=== PATIENT | male | born 1965 | race Caucasian/White ===

== ENCOUNTER 2018-06-20 17:19 | Inpatient (IN) | payer BC ==
[2018-06-20] MEDS ORDERED: Piperacillin/Tazobactam 4.5 GM in Sodium Chloride 0.9% 100 ML IVPB SCH (19:15)
[2018-06-20] MEDS ORDERED: Dextrose 5% in Water 1,000 ML IV PRN (19:32)
[2018-06-20] MEDS ORDERED: HumaLOG 300 UNITS/3 ML VIAL SC PRN (19:32)
[2018-06-20] MEDS ORDERED: Dextrose 50% Abboject 50 ML SYRINGE SLOW IVP PRN (19:32)
[2018-06-20] MEDS ORDERED: Adacel (T-DAP) 0.5 ML VIAL ONE (19:35)
[2018-06-20] MEDS ORDERED: Acetaminophen 325 MG TAB ONE (19:35)
--- NOTE | 2018-06-20 19:42 | PDOC.FPRHP ---
- History of Present Illness Chief Complaint: Foot pain History of Present Illness: Pt presents to the ED tonight with reports of a blister that began months ago, he was treated with one week course of keflex from an urgent care 3 weeks ago with improvement in the wound. Recently it has stopped draining, become more inflammed, and is somewhat painful to the touch. He denies fever/chills, SOB, lightheadedness, N/V/D. He is not sure how the wound initially began. ED Course: xfer [facility], has been vanc/zosyn and 1L NS. X-ray shows no abel involvement or indication of foreign body - Allergies/Adverse Reactions Allergies Allergy/AdvReac Type Severity Reaction Status Date / Time No Known Allergies Allergy Verified 06/20/18 20:59 - Home Medications Medication Instructions Recorded Confirmed Type No Known 06/20/18 06/20/18 History - History PMHx:DMII, HFrEF PSHx: none FHx:none Social: 1 can/day - Review of Systems General: denies: fever/chills, weight/appetite/sleep changes Eyes: denies: vision changes ENT: denies: nasal congestion Respiratory: denies: cough, shortness of breath Cardiovascular: denies: chest pain, edema Gastrointestinal: denies: nausea, vomiting, diarrhea Skin: reports: lesions. denies: jaundice Musculoskeletal: reports: pain, swelling Neurological: denies: numbness, weakness Psychological: denies: anxiety, depression - Vital signs BP: [148/89] HR: [108] RR: [16] Tmax: [99.8] Pox: [99]% on [RA] Wt: [86.18] - Physical Exam Constitutional: NAD, well developed HEENT: normocephalic and atraumatic, grossly normal vision, grossly normal hearing Neck: FROM, trachea midline Chest: no-tender to palpation Heart: RRR, normal S1/S2, no murmurs/rubs/gallops, pulses present Lungs: CTAB, no respiratory distress, good air movement Abdomen: soft, non-tender Musculoskeletal: normal structure, other (decrease ROM in R 5th toe 2/2 swelling ) Neurological: no focal deficit, CN II-XII intact Skin: capillary refill <2 seconds, other (black ulcer over R distal 5th metatarsal area, surrounding erythema and stranding extending up midfoot to distal tibia, no exudate or palpable abcess.) Heme/Lymphatic: no unusual bruising or bleeding, no petechia Psychiatric: normal mood and affect, good judgment and insight FMR H&P: A/P - Problem List (1) Diabetic foot ulcer Current Visit: Yes Status: Acute Code(s): E11.621 - TYPE 2 DIABETES MELLITUS WITH FOOT ULCER; L97.509 - NON-PRESSURE CHRONIC ULCER OTH PRT UNSP FOOT W UNSP SEVERITY (2) Diabetes mellitus type 2 with complications, uncontrolled Current Visit: Yes Status: Acute Code(s): E11.8 - TYPE 2 DIABETES MELLITUS WITH UNSPECIFIED COMPLICATIONS; E11.65 - TYPE 2 DIABETES MELLITUS WITH HYPERGLYCEMIA (3) HFrEF (heart failure with reduced ejection fraction) Current Visit: Yes Status: Acute Code(s): I50.20 - UNSPECIFIED SYSTOLIC ( CONGESTIVE) HEART FAILURE - Plan 1. Diabetic foot infection - continue IV vanc/zosyn, consider quick de-escalation to oral abx - MRI to further evaluate for osteomyelitis - monitor vital signs on medical floor - PO hydration - consider surgical debridement 2. Uncontrolled type 2 DM - most likely contributing to poor wound healing - mild sliding scale insulin - consistent carb diet - encourage est. with PCP 3. HFrEF - poor vasculature possibly contributing to poor wound healing - TTE to evaluate EF - encourage following up with a personnel recruiter outpatient - Lipid panel to evaluate risk vascular disease Disposition/LOS: observation to evaluate for osteomyelitis, continue IV antibiotics, possible DC in 24 hrs with PO abx FMR H&P: Upper Level - Pertinent history 52M seen for today for 3 week of right fifth toe ulcer. He received keflex as outpatient for 2 week. It appear to improve but then worsen. He associate it with serosanguinous discharge, pain, warmth and worsen with his work boots. He has previous history of diabetes but has not taken any medication or have any doctor he sees. He also state he had pacemaker/defib unit placed for ejection fraction less then 35% but was unable to say if there was a cause. He does not take medication for this and has not seen [facility] cardiology in 15 years, where he had his defib placed. Specifically denies fever, chills, SOB, chest pain, polydipsia, polyuria. - Pertinent findings Pertinent physical finding: Gen: Alert, grossly oriented CV: RRR with no apparent m/g/r Ext: Right foot, fifth digit, on planatar surface, there is approximately 1.5 cm diameter dry ulcer with eschar on surface. There is diffuse erythema spreading up to about 5 inch from site of ulcer. Mild pain on palpation. Sensation grossly intact. Strength 5/5 in LE. Xray foot: Calcification of vessels. - Plan Date/Time: 06/20/181940 I, [Shashank Tomas], have evaluated this patient and agree with findings/plan as outlined by sports intern resident. Pertinent changes/additions are listed here. 1. Diabetic foot cellulitis, rule out osteomyelitis - Moderate severity, failing outpatient treatment. - Plan, start with empiric vanc and zosyn. - Culture wound. MRI for further osteo assessment - Consider cv/gen surg consult 2. DM2 uncontrolled - Meets criteria with 200+ BG with diabetic symptom (diabetic foot) - Mild SSI - A1c as outpatient. Obtain lipid panel today for risk statification due to known cardiac disease and PAD which may need itnervention 3. PAD - As seen on xray, calcification of vessels. - May need imaging. Consult surgery 4. CHF with rEF - Per patient, he has EF of less then 35% with pacemaker/defib - Will obtain echo as patient has obvious vascular disease and for risk stratification - Start with aspirin, 81 mg. 5. Elevated bilirubin - No comparison. Patient does not appear jaundice, no abd pain, other liver enzyme normal - At this time, recommend outpatient work up. Attending Addendum - Attending Addendum Date/Time: 06/20/18 4754 I personally evaluated the patient and discussed the management with Dr. Harrington I agree with the History, Examination, Assessment and Plan documented above with any addition or exceptions noted below. 52 yo male with 1 month history of draining wound right foot treated with 2 week course of Keflex and now with return of symptoms. Patient with history of AODM, HTN, dyslipidemia and CHF s/p pacemaker defribrillator 15 years ago.Patient states he lost 65 lbs and has not had regular medical care for the last 15 years. Right foot with swelling and erythema and eschar formation under MTP area. No signs of systemic illness concern with osteomyelitis rec bone scan in leiu of pacemaker not candidate for MRI. Surgical consultation in AM.
[2018-06-20 20:32] VITALS: BMI 25.7
[2018-06-20] MEDS ORDERED: Vancomycin HCl 1.25 GM in Sodium Chloride 0.9% 250 ML 250 ML IVPB SCH (21:00)
[2018-06-20 21:17] LABS: Vancomycin, Trough 7.2 ug/mL
[2018-06-20] MEDS: HumaLOG 300 UNITS/3 ML VIAL SC PRN (21:32)
[2018-06-21 00:41] LABS: Hemoglobin A1c 13.1 % (4.0-6.0)
[2018-06-21] MEDS: Piperacillin/Tazobactam 4.5 GM in Sodium Chloride 0.9% 100 ML IVPB SCH ×3 (04:04→20:00)
[2018-06-21 04:24] LABS: #Eosinphils 0.1 thou/uL (0.0-0.7); #Lymphocytes 1.2 thou/uL (1.20-3.40); #Monocytes 0.6 thou/uL (0.11-0.59); #Neutrophils 4.9 thou/uL (1.40-6.50); %Basophils 0.4 % (0.0-1.0); %Eosinophils 0.9 % (0.0-10.0); %Monocytes 8.5 % (0.0-10.0); %Neutrophils 72.2 % (42.0-75.0); Hemoglobin 12.8 g/dL (14.0-18.0); Mean Corpuscular HGB CONC 33.4 g/dL (32.0-36.0); Mean Corpuscular Hemoglobin 28.2 pg (27.0-31.0); Mean Corpuscular Volume 84.4 fL (78.0-98.0); Platelet Count 141 thou/uL (130-400); RBC Distribution Width 11.5 % (11.5-14.5); Red Blood Cell (RBC) Count 4.54 mill/uL (4.70-6.10); White Blood Cell (WBC) Count 6.8 thou/uL (4.8-10.8)
[2018-06-21 04:45] LABS: ALT (SGPT) 11 U/L (8-55); AST (SGOT) 11 U/L (5-34); Albumin 3.4 g/dL (3.5-5.0); Alkaline Phosphatase 62 U/L (40-150); Anion Gap 13 mmol/L (10-20); BUN (Urea Nitrogen) 11 mg/dL (8.4-25.7); Bilirubin, Total 1.7 mg/dL (0.2-1.2); Calc. Creatinine Clearance 110 mL/min (70-130); Calcium 9.2 mg/dL (7.8-10.44); Carbon Dioxide 26 mmol/L (22-29); Cardiac Risk 2.8 (Less than 4.5); Chloride 101 mmol/L (98-107); Cholesterol 108 mg/dl (< 200 Desired); Estimated GFR-MDRD 80; Globulin 2.9 g/dL (2.4-3.5); Glucose 270 mg/dL (70-105); HDL Cholesterol 38 mg/dL (>60 Neg Risk); LDL Cholesterol, Calculated 57 mg/dL; Protein, Total 6.3 g/dL (6.0-8.3); Sodium 136 mmol/L (136-145); Triglycerides 66 mg/dL (Less than 150)
--- NOTE | 2018-06-21 06:39 | PDOC.FM ---
- Subjective Subjective: NAEO. Patient denies any chest pain, SOB, N/V, fever/chills or significant foot pain. States his pain is currently 2/10 in severity. - Objective MAR Reviewed: Yes Vital Signs & Weight: Vital Signs (12 hours) Temp Pulse Resp BP Pulse Ox 06/21/18 04:05 98.8 F 89 16 141/78 H 94 L 06/20/18 23:30 98.5 F 94 20 120/66 95 06/20/18 20:31 99.5 F 102 H 20 145/78 H 98 Weight Weight 88.5 kg I&O: 06/19/18 06/20/18 06/21/18 06:59 06:59 06:59 Intake Total 690 Output Total 825 Balance -135 Result Diagrams: 06/21/18 04:05 06/21/18 04:05 <Andressa Aquino - Last Filed: 06/21/18 13:15> - Objective Vital Signs & Weight: Vital Signs (12 hours) Temp Pulse Resp BP Pulse Ox 06/21/18 11:21 98.7 F 89 20 142/79 H 94 L 06/21/18 07:46 98.8 F 87 16 128/70 96 06/21/18 04:05 98.8 F 89 16 141/78 H 94 L Weight Weight 88.5 kg I&O: 06/20/18 06/21/18 06/22/18 06:59 06:59 06:59 Intake Total 690 1000 Output Total 825 500 Balance -135 500 Result Diagrams: 06/21/18 04:05 06/21/18 04:05 <Joselito Donald - Last Filed: 06/21/18 13:51> Phys Exam - Physical Examination Constitutional: NAD HEENT: sclera anicteric Neck: supple, full ROM Respiratory: no wheezing, no rales, no rhonchi, clear to auscultation bilateral Cardiovascular: RRR, no significant murmur Gastrointestinal: soft, non-tender, no distention, positive bowel sounds Musculoskeletal: pulses present, edema present edema over right 5th digit and dorsum of foot Neurological: non-focal, moves all 4 limbs decreased ROM in right 5th toe 2/2 inflammation Psychiatric: normal affect, A&O x 3 Skin: no rash, normal turgor Deviation from normal: erythema and edema in R foot in R 5th toe extending over dorsum of foot -: ~2cm area of eschar w/ purulent discharge noted at base of 5th digit <Andressa Aquino - Last Filed: 06/21/18 13:15> Dx/Plan (1) Diabetic foot ulcer Code(s): E11.621 - TYPE 2 DIABETES MELLITUS WITH FOOT ULCER; L97.509 - NON- PRESSURE CHRONIC ULCER OTH PRT UNSP FOOT W UNSP SEVERITY Status: Acute Qualifiers: Diabetic foot ulcer location: midfoot Laterality: right (2) Diabetes mellitus type 2 with complications, uncontrolled Code(s): E11.8 - TYPE 2 DIABETES MELLITUS WITH UNSPECIFIED COMPLICATIONS; E11.65 - TYPE 2 DIABETES MELLITUS WITH HYPERGLYCEMIA Status: Chronic (3) HFrEF (heart failure with reduced ejection fraction) Code(s): I50.20 - UNSPECIFIED SYSTOLIC (CONGESTIVE) HEART FAILURE Status: Chronic Qualifiers: Heart failure chronicity: chronic Qualified Code(s): I50.22 - Chronic systolic (congestive) heart failure - Plan Plan: 52YOM w/ PMH significant for poorly controlled DMII who presented to the ED w/ a CC of a nonhealing right foot ulcer that has been present for the last month. Right foot cellulitis vs.possible osteomyelitis - Will continue IV vanc/zosyn for now. Will consider quick de-escalation to oral abx if no osteo evident on NM bone scan. - NM bone scan pending to further evaluate for osteomyelitis. - Will continue to monitor vital signs on medical floor. - Will keep NPO in anticipation of possible need for surgical debridement. General surgery, Dr. Elvia Seo, consulted today. - Wound care consulted. Uncontrolled type 2 DM - A1c 13.1 on admission w/ BG levels consistently >200 even while NPO. - Will consider initiating basal insulin in conjunction w/ metformin for better BG control. Goal to keep BG <200 to promote wound healing. - Will also consider initiating statin and RESHMA-I therapy given patient's poor control. - Will continue accuchecks. HFrEF - Patient has a pacemaker in place. Possibly 2/2 CHF. Has been at least 15 years since patient was seen by cards. - Echo pending to evaluate EF. - Will encourage following up with a deli bakery clerk outpatient. - Lipid panel WNLs but will consider initiating statin therapy given patient's poorly controlled DM. <Andressa Aquino - Last Filed: 06/21/18 13:15> (1) Diabetic foot ulcer Code(s): E11.621 - TYPE 2 DIABETES MELLITUS WITH FOOT ULCER; L97.509 - NON- PRESSURE CHRONIC ULCER OTH PRT UNSP FOOT W UNSP SEVERITY Status: Acute Qualifiers: Diabetic foot ulcer location: midfoot Laterality: right (2) Diabetes mellitus type 2 with complications, uncontrolled Code(s): E11.8 - TYPE 2 DIABETES MELLITUS WITH UNSPECIFIED COMPLICATIONS; E11.65 - TYPE 2 DIABETES MELLITUS WITH HYPERGLYCEMIA Status: Chronic (3) HFrEF (heart failure with reduced ejection fraction) Code(s): I50.20 - UNSPECIFIED SYSTOLIC (CONGESTIVE) HEART FAILURE Status: Chronic Qualifiers: Heart failure chronicity: chronic Qualified Code(s): I50.22 - Chronic systolic (congestive) heart failure <Joselito Donald - Last Filed: 06/21/18 13:51> Attending Addendum - Attending Addendum Date/Time: 06/21/18 1345 I personally evaluated the patient and discussed the management with Dr. Aquino I agree with the History, Examination, Assessment and Plan documented above with any addition or exceptions noted below. Patient with neglected diabetes will benefit from aggressive management for wound healing no systemic signs bacterial infection. Continue current antibiotic coverage for soft tissue infection and opinion from General Surgery regard need for formal debridement . Patient for bone scan today r/o osteomyelitis, Echocadiogram to evaluate EF note prior placement of AICD x 15 year unknown status patient unaware of any device interrogation and cordwainer /placemt ID card unavailable rec f/u . <Joselito Donald - Last Filed: 06/21/18 13:51>
[2018-06-21] MEDS ORDERED: Dextrose 50% Abboject 50 ML SYRINGE SLOW IVP PRN (07:57)
[2018-06-21] MEDS ORDERED: Dextrose 5% in Water 1,000 ML IV PRN (07:57)
[2018-06-21] MEDS: Vancomycin HCl 1.25 GM in Sodium Chloride 0.9% 250 ML 250 ML IVPB SCH ×2 (10:03→21:46)
[2018-06-21] MEDS: Insulin Glargine 10 UNITS in Pre-Filled Syringe 1 EACH SC SCH (10:12)
[2018-06-21] MEDS: metFORMIN 500 MG TAB PO SCH ×2 (10:12→15:51)
--- NOTE | 2018-06-21 18:06 | NM ---
THREE-PHASE BONE SCAN OF BOTH FEET: HISTORY: Left foot cellulitis and possible osteomyelitis. The patient has diabetes. TECHNIQUE: A 3-phase bone scan was performed after administration of 30 mCi of Technetium 99m MDP. FINDINGS: Angiographic and blood pool phase images show increased flow to the left foot compared to the right. Delayed phase images show increased uptake of the radiopharmaceutical in the phalanges of the small toe. Subtle increased uptake of the radiopharmaceutical is also seen surrounding the metatarsal phal angeal joint of the 4th toe. Whole body bone scan images showed no other areas of increased or decreased uptake of the radiopharma ceutical. IMPRESSION: Findings are 3-phase positive of the right with increased uptake in the small toe. This is consisten t with osteomyelitis of the small toe. The uptake in the 4th toe adjacent to the metatarsal phalange al joint may or may not represent osteomyelitis. POS: MICHAEL
[2018-06-21] MEDS: Atorvastatin Calcium 40 MG TAB PO SCH (19:59)
--- NOTE | 2018-06-21 20:43 | CON ---
DATE OF CONSULTATION: 06/21/2018 REASON FOR CONSULTATION: Right foot diabetic infection. HISTORY: Mr. Fischer is a 52-year-old man who presented to the hospital with a 1 month history of inte rmittent right foot swelling and erythema. He states that he had a small blister on the side of his foot and developed redness and swelling related to this. He was treated with antibiotics and the swe lling would respond to this, but then as soon as he finish taking his antibiotics the swelling would recur. He denies any drainage from the wound recently, although there has been some in the past. No known foreign body or puncture wound. He cannot remember what caused the wound. PAST MEDICAL HISTORY: Diabetes, heart failure. PAST SURGICAL HISTORY: None. FAMILY HISTORY: Noncontributory. SOCIAL HISTORY: Occasional alcohol use, but no tobacco or drugs. HOME MEDICATIONS: Keflex for about 3 weeks recently. His diabetes has been primarily managed by t alone. INPATIENT MEDICATIONS: Include atorvastatin, sliding scale insulin, metformin, Zosyn, and vancomycin . PHYSICAL EXAMINATION: VITAL SIGNS: Patient has been afebrile since his admission. Heart rate 89, respirations 20, 94% sat urated on room air, blood pressure 142/79. GENERAL: Reveals a healthy appearing man in no acute distress. He is not flushed or toxic, jaundice d or icteric. HEENT: Unremarkable. NECK: Supple, without lymphadenopathy or thyroid nodules. HEART: Regular in its rate and rhythm without murmurs, rubs or gallops. LUNGS: Clear to auscultation bilaterally. ABDOMEN: Soft, nontender, nondistended. EXTREMITIES: Warm and well perfused with palpable pedal pulses bilaterally. He has lymphangitic str eaking on the right foot and a closed wound on the lateral leg from which there is no expressible gayle inage. He has some skin on the surface, but there is no tract which probes down to bone or deep tissue. NEUROLOGIC: No focal deficits. PSYCHIATRIC: Alert, oriented, and appropriate. LABORATORY DATA: White count is normal at 6.8, hematocrit 38.3, platelets 141. Electrolytes are unr emarkable, but glucose has been elevated at 189-272 and hemoglobin A1c is high at 13.1. His electrol ytes are unremarkable. Bilirubin is mildly elevated at 1.7, but the other LFTs are normal. IMAGING: Bone scan of the body revealed increased uptake in the right fifth digit and some mild incr ease in the right fourth metatarsal. ASSESSMENT: Osteomyelitis of the right fifth toe. PLAN: I have recommended amputation for this given the prolonged course and recurrence after complet ing antibiotics. The patient was not ready to proceed to OR and asked about nonoperative options and stated that one nonoperative treatment is chosen typically a PICC line will be placed for long-term IV antibiotics and this will be managed by the Infectious Disease doctor. There is a small chance of toe salvage, but if the infection recurs an amputation would be necessary. The patient and his fami ly would like to speak to Dr. Campos about nonoperative treatment. I do believe that the patient has good enough blood flow to heal an amputation if he decides to proceed with this. Since he will not b e undergoing amputation today, I have resumed his diet and I have consulted Dr. Campos to discuss nono perative management with the patient and his family.
[2018-06-21] MEDS: HumaLOG 300 UNITS/3 ML VIAL SC PRN (23:32)
[2018-06-21] MEDS: Acetaminophen 500 MG TAB PO PRN (23:33)
[2018-06-22] MEDS: Piperacillin/Tazobactam 4.5 GM in Sodium Chloride 0.9% 100 ML IVPB SCH ×3 (04:39→20:02)
--- NOTE | 2018-06-22 05:28 | PDOC.FM ---
- Subjective Subjective: Pt. states he slept well. He denies any cp, sob, abdominal pain, or n/v. Pt. reports his foot is feeling better. He reports the redness is improved. He does state that his hesitation to amputation is the suddenness of the suggestion of amputation. 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 - Objective MAR Reviewed: Yes Vital Signs & Weight: Vital Signs (12 hours) Temp Pulse Resp BP Pulse Ox 06/22/18 04:00 98.0 F 80 16 112/67 94 L 06/22/18 00:00 99.3 F 94 16 117/67 94 L 06/21/18 20:00 99.4 F 96 16 144/89 H 94 L Weight Weight 88.5 kg I&O: 06/20/18 06/21/18 06/22/18 06:59 06:59 06:59 Intake Total 690 1340 Output Total 825 800 Balance -135 540 Result Diagrams: 06/21/18 04:05 06/21/18 04:05 <Tigre Elena - Last Filed: 06/22/18 15:20> - Objective Vital Signs & Weight: Vital Signs (12 hours) Temp Pulse Resp BP Pulse Ox 06/22/18 09:26 97.7 F 109 H 18 126/74 97 06/22/18 08:00 97 Weight Admit Weight 88.451 kg Weight 88.5 kg I&O: 06/21/18 06/22/18 06/23/18 06:59 06:59 06:59 Intake Total 690 1340 180 Output Total 825 800 Balance -135 540 180 Result Diagrams: 06/21/18 04:05 06/21/18 04:05 <Lesly Ignacio - Last Filed: 06/22/18 17:11> Phys Exam - Physical Examination Constitutional: NAD HEENT: PERRLA, moist MMs Neck: no JVD Respiratory: no wheezing, clear to auscultation bilateral Cardiovascular: RRR, irregular (fixed s2 split, scar consistent with pacemaker placement) Gastrointestinal: soft, non-tender, no distention, positive bowel sounds Musculoskeletal: no edema, pulses present (both posterior tibial and dorsal pedalis pusles stronger in left leg.) Neurological: moves all 4 limbs Psychiatric: normal affect, A&O x 3 Skin: cap refill <2 seconds <Tigre Elena - Last Filed: 06/22/18 15:20> Dx/Plan (1) Osteomyelitis of toe of right foot Code(s): M86.9 - OSTEOMYELITIS, UNSPECIFIED Status: Acute (2) Diabetic foot ulcer Code(s): E11.621 - TYPE 2 DIABETES MELLITUS WITH FOOT ULCER; L97.509 - NON- PRESSURE CHRONIC ULCER OTH PRT UNSP FOOT W UNSP SEVERITY Status: Acute Qualifiers: Diabetic foot ulcer location: midfoot Laterality: right (3) Diabetes mellitus type 2 with complications, uncontrolled Code(s): E11.8 - TYPE 2 DIABETES MELLITUS WITH UNSPECIFIED COMPLICATIONS; E11.65 - TYPE 2 DIABETES MELLITUS WITH HYPERGLYCEMIA Status: Chronic (4) HFrEF (heart failure with reduced ejection fraction) Code(s): I50.20 - UNSPECIFIED SYSTOLIC (CONGESTIVE) HEART FAILURE Status: Chronic Qualifiers: Heart failure chronicity: chronic Qualified Code(s): I50.22 - Chronic systolic (congestive) heart failure - Plan Plan: This is a 52 yo male with a PMH of DM2 uncontrolled, and HFrEF Diabetic foot ulcer with osteomyelitis of right 5th toe -Nuclear study shows evidence of osteo of the 5th toe. Pt. is currently on IV vanc and zosyn and will likely need this regiment for 6 weeks unless pt. undergoes surgery. Dr. Seo was consulted and believes amputation is the best option given the pt's blood flow and recurrent infections. Pt. is not ready for this and wishes to discuss plan with Dr. Campos. Dr. Seo has consulted Dr. Campos and we will appreciate his rec. Wound care has been consulted. Uncontrolled type 2 DM -Evidently pt. A1C and glucose levels were elevated upon admission. Our goal is to keep BG <200 to allow for wound healing. Pt. is receiving metformin, long, and short acting insulin. We will continue accuchecks. HFrEF -Pt. has pacemaker. EF shows 25-30%. We will encourage pt. to follow up with blow torch operator outpatient Code: Full Prophylaxis: None currently Family: at bedside, plan discussed with her Disposition: DC in 3-4 days <Tigre Elena - Last Filed: 06/22/18 15:20> Attending Addendum - Attending Addendum Date/Time: 06/22/18 5671 I personally evaluated the patient and discussed the management with Dr. Elena. I agree with the History, Examination, Assessment and Plan documented above with any addition or exceptions noted below. The patient continues on IV antibiotics for osteomyelitis. Dr. Campos has been consulted and recs are pending. Erythema has improved from the margins drawn on the foot. <Lesly Ignacio - Last Filed: 06/22/18 17:11>
[2018-06-22] MEDS: Insulin Glargine 10 UNITS in Pre-Filled Syringe 1 EACH SC SCH (08:46)
[2018-06-22] MEDS: metFORMIN 500 MG TAB PO SCH ×2 (08:46→16:06)
[2018-06-22] MEDS: Vancomycin HCl 1.25 GM in Sodium Chloride 0.9% 250 ML 250 ML IVPB SCH ×2 (08:46→21:12)
[2018-06-22 10:02] LABS: Vancomycin, Trough 27.9 ug/mL
[2018-06-22] MEDS: HumaLOG 300 UNITS/3 ML VIAL SC PRN ×2 (14:17→17:55)
--- NOTE | 2018-06-22 15:43 | PDOC.GSPN ---
Surgery Progress Note: Subj - Subjective Narrative: Patient feels better today. He feels like his foot has improved in terms of the pain and swelling. On examination, he looks about the same to me. His toe is still very swollen and red and he still has lymphangitic streaking. There is no expressible drainage from the ulcer. He is afebrile and his vitals are stable. When I saw him he was still waiting to see Dr. Campos. Assessment/plan: Osteomyelitis of the right fifth toe. I have recommended amputation. He would like to investigate nonoperative options first. Since he is not ready to proceed with surgery I have ordered a diet for him. If he decides to have surgery, I have asked his nurse to contact me so that I can put him on the OR schedule and stop his diet; however, I have no plans to operate today. Surgery Progress Note: Obj - Vital signs Vital signs: Vital Signs - Most Recent Temp Pulse Resp BP Pulse Ox 97.7 F 109 H 18 126/74 97 06/22/18 09:26 06/22/18 09:26 06/22/18 09:26 06/22/18 09:26 06/22/18 09:26 Surgery Progress Note: Results - Labs Result Diagrams: 06/21/18 04:05 06/21/18 04:05 Lab results: Laboratory Results - last 24 hr 06/22/18 06/22/18 06/22/18 04:53 09:36 11:25 POC Glucose 186 H 225 H Vancomycin Trough 27.9
[2018-06-22] MEDS ORDERED: Morphine 4 MG/ML VIAL SLOW IVP SCH (16:00)
[2018-06-22] MEDS: Acetaminophen 500 MG TAB PO PRN ×2 (16:06→23:03)
[2018-06-22] MEDS: Atorvastatin Calcium 40 MG TAB PO SCH (20:02)
[2018-06-22 20:24] LABS: Vancomycin, Trough 14.5 ug/mL
--- NOTE | 2018-06-22 23:15 | CON ---
DATE OF CONSULTATION: 06/22/2018 REASON FOR CONSULTATION: Inflammatory process, right fifth toe with abnormal bone scan. HISTORY OF PRESENT ILLNESS: A 52-year-old with history of type 2 diabetes and neuropathy, who develo ped what he describes as a scab in the lateral aspect of the right fifth toe, was treated with antimi crobial therapy after he developed erythema with improvement and then overnight from Friday to ay. The day of admission, he noticed very rapid recrudescence of the erythema. He was admitted. X- ray did not show any obvious osteolysis, but bone scan was positive. REVIEW OF SYSTEMS: He denies headaches, visual symptoms, sore throat, odynophagia, dysphagia, no cou gh or sputum production, no chest pain, abdominal pain, diarrhea. No genitourinary symptoms. No bayron nt symptoms outside the area of involvement. PAST MEDICAL HISTORY: Type 2 diabetes, neuropathy. PAST SURGICAL HISTORY: Negative. FAMILY HISTORY: Noncontributory. SOCIAL HISTORY: Drinks 1 beer a day. No smoking history. Works in [employer]. Lives in [facility] with . CURRENT MEDICATIONS: Tylenol, Lipitor, dextrose, glucagon, insulin, metformin, Zosyn, and vancomycin . PHYSICAL EXAMINATION: VITAL SIGNS: T-max 99.5, currently 97.7; blood pressure 120/74; pulse 80-109, respirations 18, O2 sa t 97%. SKIN: Shows the right fifth toe erythema in a circumferential distribution and there is an area of d eep tissue injury at the lateral aspect of the right fifth metatarsal. There is an erythema extendin g from that area towards the fifth digit and extending towards the dorsal aspect of the forefoot as w ell. There is no lymphadenopathy. HEENT: Ocular movements conjugate. Sclerae white. Oral cavity normal. NECK: Supple. No jugular vein distention. LUNGS: With symmetric clear breath sounds. HEART: S1, S2, regular rate. No S3, S4. ABDOMEN: Soft, not distended or tender. No ascites. No bladder distention. EXTREMITIES: No other joint inflammatory activity. Pulses are 2+ in dorsalis pedis and posterior ti bialis and popliteals. Moves extremities equally. NEUROLOGIC: Cognitive function appears to be intact. LABORATORY DATA: White cell count 6.8, hemoglobin 12.8, platelets 141, 72% neutrophils. Chemistry f airly unremarkable except for bilirubin of 1.7, albumin 3.4, glucose 270. Hemoglobin A1c 13.1. Two sets of blood cultures, no growth at 48 hours. IMAGING: The patient had a foot x-ray with no acute osseous abnormality. Bone scan nuclear med stud y with increased uptake small toe. Fourth toe, there might be some uptake too. Echocardiogram showe d EF 30%. ASSESSMENT AND DISCUSSION: Type 2 diabetes with deep tissue injury, right fifth metatarsal with evid ence of inflammatory changes and possible osteomyelitis, and at this point, the options are surgical amputation at the ray level versus conservative management in view of the good vascular supply and th e lack of obvious overt bony destruction. One could attempt conservative measures with just antimicr obial therapy. We discussed potential adverse reactions from the treatment and the length of treatme nt as well as the possible need for amputation anyways if it fails. The patient understood and agree d with management recommendations.
[2018-06-23] MEDS: Ondansetron HCl/PF 4 MG/2 ML Vial IVP PRN ×3 (00:43→20:10)
[2018-06-23] MEDS: Piperacillin/Tazobactam 4.5 GM in Sodium Chloride 0.9% 100 ML IVPB SCH ×3 (05:11→20:09)
--- NOTE | 2018-06-23 06:18 | PDOC.FM ---
- Subjective Subjective: Pt. states he did well overnight. He reports improved pain in his toe although he states that wound care was really digging yesterday. He is also complaining of a dry cough. Pt. denies gerd or lisinopril use. Pt. states he would like to attend is mother in law's on and asked us to keep this in consideration when planning his care. - Objective MAR Reviewed: Yes Vital Signs & Weight: Vital Signs (12 hours) Temp Pulse Resp BP Pulse Ox 06/22/18 19:55 98.8 F 96 18 145/87 H 94 L Weight Admit Weight 88.451 kg Weight 88.5 kg I&O: 06/21/18 06/22/18 06/23/18 06:59 06:59 06:59 Intake Total 690 1340 650 Output Total 825 800 Balance -135 540 650 Result Diagrams: 06/21/18 04:05 06/21/18 04:05 <Tigre Elena - Last Filed: 06/23/18 09:21> - Objective Vital Signs & Weight: Vital Signs (12 hours) Temp Pulse Resp BP Pulse Ox 06/23/18 08:52 98.2 F 86 18 133/74 94 L 06/23/18 08:00 95 Weight Admit Weight 88.451 kg Weight 88.5 kg I&O: 06/22/18 06/23/18 06/24/18 06:59 06:59 06:59 Intake Total 1340 650 Output Total 800 Balance 540 650 Result Diagrams: 06/21/18 04:05 06/21/18 04:05 <Lesly Ignacio - Last Filed: 06/23/18 16:13> Phys Exam - Physical Examination Constitutional: NAD HEENT: moist MMs Neck: no JVD Respiratory: no wheezing, clear to auscultation bilateral Cardiovascular: RRR, no significant murmur Gastrointestinal: soft, non-tender, no distention, positive bowel sounds Musculoskeletal: no edema, pulses present (1+ on right 2+ on left) Neurological: moves all 4 limbs Psychiatric: A&O x 3 Skin: cap refill <2 seconds <Tigre Elena - Last Filed: 06/23/18 09:21> Dx/Plan (1) Osteomyelitis of toe of right foot Code(s): M86.9 - OSTEOMYELITIS, UNSPECIFIED Status: Acute (2) Diabetic foot ulcer Code(s): E11.621 - TYPE 2 DIABETES MELLITUS WITH FOOT ULCER; L97.509 - NON- PRESSURE CHRONIC ULCER OTH PRT UNSP FOOT W UNSP SEVERITY Status: Acute Qualifiers: Diabetic foot ulcer location: midfoot Laterality: right (3) Diabetes mellitus type 2 with complications, uncontrolled Code(s): E11.8 - TYPE 2 DIABETES MELLITUS WITH UNSPECIFIED COMPLICATIONS; E11.65 - TYPE 2 DIABETES MELLITUS WITH HYPERGLYCEMIA Status: Chronic (4) HFrEF (heart failure with reduced ejection fraction) Code(s): I50.20 - UNSPECIFIED SYSTOLIC (CONGESTIVE) HEART FAILURE Status: Chronic Qualifiers: Heart failure chronicity: chronic Qualified Code(s): I50.22 - Chronic systolic (congestive) heart failure - Plan Plan: This is a 52 yo male with a PMH of DM2 uncontrolled, and HFrEF Diabetic foot ulcer with osteomyelitis of right 5th toe -Nuclear study shows evidence of osteo of the 5th toe. Pt. is currently on IV vanc and zosyn and will likely need this regiment for 6 weeks unless pt. undergoes surgery. Dr. Seo and Dr. Campos have both discussed treatment options with the patient. Pt. would like to pursue conservative management with IV abx. we will need to order pt. a picc line when he is closer to DC as well as discuss with case management options for receiving abx and wound care in the outpt setting. We will appretiate Dr. Seo's and Dr. Campos' recommendations going forward. Uncontrolled type 2 DM -Evidently pt. A1C and glucose levels were elevated upon admission. Our goal is to keep BG <200 to allow for wound healing. Pt. is receiving metformin, long, and short acting insulin. We will continue accuchecks. HFrEF -Pt. has pacemaker. EF shows 25-30%. We will encourage pt. to follow up with score caller outpatient Code: Full Prophylaxis: None currently Family: at bedside, plan discussed with her Disposition: DC in 3-4 days <Tigre Elena - Last Filed: 06/23/18 09:21> Attending Addendum - Attending Addendum Date/Time: 06/23/18 5612 I personally evaluated the patient and discussed the management with Dr. Elena. I agree with the History, Examination, Assessment and Plan documented above with any addition or exceptions noted below. Pt will get picc line. Case management is working on IV antibiotics as an outpt. Erythema on foot is slightly improved. <Lesly Ignacio - Last Filed: 06/23/18 16:13>
[2018-06-23] MEDS: metFORMIN 500 MG TAB PO SCH ×2 (08:09→16:25)
[2018-06-23] MEDS: Insulin Glargine 14 UNITS in Pre-Filled Syringe 1 EACH SC SCH (08:11)
[2018-06-23] MEDS: Vancomycin HCl 1.75 GM in Sodium Chloride 0.9% 500 ML IVPB SCH ×2 (09:50→21:35)
--- NOTE | 2018-06-23 16:56 | SPC ---
ULTRASOUND AND FLUOROSCOPIC GUIDED RIGHT UPPER EXTREMITY PICC LINE PLACEMENT: 06/23/18 INDICATION: Right foot infection. Need for shelter IV antibiotics. TECHNIQUE: Informed consent was obtained. Right upper extremity was prepped and draped in the usual sterile [facility] ion. Buffered 1% lidocaine was administered overlying the subcutaneous tissue. Under ultrasound tay nce, a micropuncture access kit was utilized to gain access to the right brachial vein. Guide wire wa s advanced to the level of the IVC. 5 Tamazight catheter sheath was then placed. A single lumen PICC brisa e, trimmed to 43 cm guided over the wire and through the sheath. The sheath and wire were removed. Ca theter was projected to the region of the cavoatrial junction. Catheter was flushed and aspirated marlena ropriately. Patient tolerated the procedure without difficulty. IMPRESSION: Successful right upper extremity PICC line placement. POS: [facility]
[2018-06-23] MEDS: Atorvastatin Calcium 40 MG TAB PO SCH (20:09)
[2018-06-23] MEDS: Acetaminophen 500 MG TAB PO PRN (20:09)
[2018-06-23] MEDS: Famotidine 20 MG TAB PO SCH (20:09)
[2018-06-23] MEDS: HumaLOG 300 UNITS/3 ML VIAL SC PRN (22:01)
[2018-06-24] MEDS: Piperacillin/Tazobactam 4.5 GM in Sodium Chloride 0.9% 100 ML IVPB SCH ×2 (05:06→15:06)
[2018-06-24] MEDS: HumaLOG 300 UNITS/3 ML VIAL SC PRN (05:10)
--- NOTE | 2018-06-24 06:12 | PDOC.FM ---
- Subjective Subjective: Pt. reports some nausea yesterday afternoon that was relieved somewhat by zofran. Pt. had no episodes of vomiting yesterday and feels better today. Pt. also reports feeling weaker today. He states that he was not given his long acting abx 2/2 being NPO. Pt. denies chest pain, dyspnea, or abdominal pain. His reports some drainage from his toe. - Objective MAR Reviewed: Yes Vital Signs & Weight: Vital Signs (12 hours) Temp Pulse Resp BP Pulse Ox 06/23/18 19:52 98.8 F 105 H 17 116/78 96 Weight Admit Weight 88.451 kg Weight 88.5 kg I&O: 06/22/18 06/23/18 06/24/18 06:59 06:59 06:59 Intake Total 2156 677 6818 Output Total 800 Balance 928 213 3584 Result Diagrams: 06/21/18 04:05 06/21/18 04:05 <Tigre Elena - Last Filed: 06/24/18 13:17> - Objective Vital Signs & Weight: Vital Signs (12 hours) Temp Pulse Resp BP Pulse Ox 06/24/18 08:56 97.9 F 92 16 125/78 96 06/24/18 08:00 96 Weight Admit Weight 88.451 kg Weight 88.5 kg I&O: 06/23/18 06/24/18 06/25/18 06:59 06:59 06:59 Intake Total 650 1005 240 Balance 650 1005 240 Result Diagrams: 06/21/18 04:05 06/21/18 04:05 <Lesly Ignacio - Last Filed: 06/24/18 17:09> Phys Exam - Physical Examination Constitutional: NAD (resting in bed) HEENT: moist MMs Neck: no JVD Respiratory: no wheezing, clear to auscultation bilateral Cardiovascular: RRR, no significant murmur Gastrointestinal: soft, non-tender, no distention, positive bowel sounds Musculoskeletal: no edema, pulses present (slightly decreased on the left) Neurological: moves all 4 limbs Psychiatric: normal affect, A&O x 3 Deviation from normal: Swelling and erythema is improved. -: He does have purulent drainage expressed from his right 5th toe <Tigre Elena - Last Filed: 06/24/18 13:17> Dx/Plan (1) Osteomyelitis of toe of right foot Code(s): M86.9 - OSTEOMYELITIS, UNSPECIFIED Status: Acute (2) Diabetic foot ulcer Code(s): E11.621 - TYPE 2 DIABETES MELLITUS WITH FOOT ULCER; L97.509 - NON- PRESSURE CHRONIC ULCER OTH PRT UNSP FOOT W UNSP SEVERITY Status: Acute Qualifiers: Diabetic foot ulcer location: midfoot Laterality: right (3) Diabetes mellitus type 2 with complications, uncontrolled Code(s): E11.8 - TYPE 2 DIABETES MELLITUS WITH UNSPECIFIED COMPLICATIONS; E11.65 - TYPE 2 DIABETES MELLITUS WITH HYPERGLYCEMIA Status: Chronic (4) HFrEF (heart failure with reduced ejection fraction) Code(s): I50.20 - UNSPECIFIED SYSTOLIC (CONGESTIVE) HEART FAILURE Status: Chronic Qualifiers: Heart failure chronicity: chronic Qualified Code(s): I50.22 - Chronic systolic (congestive) heart failure - Plan Plan: This is a 52 yo male with a PMH of DM2 uncontrolled, and HFrEF Diabetic foot ulcer with osteomyelitis of right 5th toe -Nuclear study shows evidence of osteo of the 5th toe. Pt. is currently on IV vanc and zosyn and will likely need this regiment for 6 weeks unless pt. undergoes surgery. Dr. Seo and Dr. Campos have both discussed treatment options with the patient. Pt. would like to pursue conservative management with IV abx. We are pending insurance acceptance for outpt abx therapy. Pt. had picc line placement yesterday. We will continue to appreciate Dr. Seo's and Dr. Campos' recommendations going forward. I will discuss with wound care today his drainage and appreciate their recommendations Uncontrolled type 2 DM -Evidently pt. A1C and glucose levels were elevated upon admission. Our goal is to keep BG <200 to allow for wound healing. Pt. is receiving metformin, long, and short acting insulin. We will continue accuchecks. Long acting insulin was held yesterday 2/2 pt. refusing vs. NPO status. BG was elevated. HFrEF -Pt. has pacemaker. EF shows 25-30%. We will encourage pt. to follow up with customer manager outpatient Dry cough -Denies lisinopril use or GERD. I started him on a trial of pepcid to see if that will make a change in his dry cough. Code: Full Prophylaxis: None currently Family: at bedside, plan discussed with her Disposition: DC home today or tomorrow pending acceptance to outpt. abx therapy <Tigre Elena - Last Filed: 06/24/18 13:17> Attending Addendum - Attending Addendum Date/Time: 06/24/18 [id number] I personally evaluated the patient and discussed the management with Dr. Elena. I agree with the History, Examination, Assessment and Plan documented above with any addition or exceptions noted below. The patient has been approved for outpt antibiotics. He will likely be discharged this afternoon. WE discussed the importance of controlling blood sugar to help with infection. Total > 30 minutes spent on discharge planning by myself with Dr. Elena. 34 minutes. <Lesly Ignacio - Last Filed: 06/24/18 17:09>
[2018-06-24] MEDS: Ondansetron HCl/PF 4 MG/2 ML Vial IVP PRN ×2 (06:38→15:07)
[2018-06-24] MEDS: metFORMIN 500 MG TAB PO SCH ×2 (08:04→15:07)
[2018-06-24] MEDS: Famotidine 20 MG TAB PO SCH (08:04)
[2018-06-24] MEDS: Insulin Glargine 14 UNITS in Pre-Filled Syringe 1 EACH SC SCH (08:04)
[2018-06-24 08:57] VITALS: BP 125/78; TEMP 97.9
[2018-06-24] MEDS: Vancomycin HCl 1.75 GM in Sodium Chloride 0.9% 500 ML IVPB SCH (10:01)
--- NOTE | 2018-06-24 19:04 | PDOC.GSPN ---
Surgery Progress Note: Subj - Subjective Narrative: Patient has opted for nonoperative management of his osteomyelitis and is feeling better. I came by to check on his foot because there was a report that he had some purulent drainage from his lateral foot wound. I was unable to express any pus from this area but he did have some skin with a underlying ulcer and this was unroofed. When I removed some skin from over his to go there was purulent drainage from the lateral toe as well. There were 3 punctate drainage holes which I connected unroofing a small cavity beneath. There was some purulent drainage expressible with compression of the toe but the wound did not probe deep to joint or bone. Patient was instructed in daily packing of the toe wound. Since the lateral foot wound is superficial we will continue with a surface dressing with silver impregnated dressing. I would like to see him back in my clinic next week for wound check. Surgery Progress Note: Obj - Vital signs Vital signs: Vital Signs - Most Recent Temp Pulse Resp BP Pulse Ox 97.9 F 92 16 125/78 96 06/24/18 08:56 06/24/18 08:56 06/24/18 08:56 06/24/18 08:56 06/24/18 08:56 Surgery Progress Note: Results - Labs Result Diagrams: 06/21/18 04:05 06/21/18 04:05 Lab results: Laboratory Results - last 24 hr 06/24/18 06/24/18 11:49 16:51 POC Glucose 232 H 214 H
[2018-06-24] MEDS ORDERED: Enoxaparin Sodium 40 MG/0.4 ML SYRINGE SC SCH (21:00)
--- NOTE | 2018-06-25 07:56 | DIS-2 ---
DATE OF ADMISSION: 06/20/2018 DATE OF DISCHARGE: 06/24/2018 RESIDENT: Tigre Elena DO ADMITTING ATTENDING: Joselito Donald M.D. DISCHARGE ATTENDING: Lesly Ignacio M.D. CONSULTATIONS: Dr. Elvia Seo, General Surgery; Dr. Wesley Campos, ID. PROCEDURES: PICC line placement. Three-phase bone scan showing increased uptake in the right small toe consistent with osteomyelitis of the toe. The uptake in the fourth toe adjacent to the metatarsophalangeal joint may or may not represent osteomyelitis. Echocardiogram showing EF of 25% to 30%. PRIMARY DIAGNOSIS: Osteomyelitis of the right fifth digit on the lower extremity. SECONDARY DIAGNOSES: Type 2 diabetes, heart failure with reduced ejection fraction. DISCHARGE MEDICATIONS: Atorvastatin 40 mg p.o. at bedtime, Pepcid 20 mg b.i.d. , Lantus Solostar 10 units q.a.m., metformin 50 mg p.o. b.i.d. DISCONTINUED MEDICATIONS: None. HISTORY OF PRESENT ILLNESS AND HOSPITAL COURSE: This is a 52-year-old male who presented with what he reports was a blister on his right pinky toe. He was treated with 1-week course of Keflex, which did not resolve the redness or inflammation. He states that it was more inflamed. While he was here, General Surgery was consulted. At which time, the patient declined any operative procedures. Dr. Campos with ID was consulted and he is planning an out patient antibiotic regimen. While he was here, the patient was on vancomycin and Zosyn until the time of discharge. We also had a difficult time controlling his blood sugar secondary to patient refusing versus nurses not giving due to n.p.o. status. DISPOSITION: Stable. DISCHARGE PLAN: 1. Location: Home. 2. Diet: Heart healthy and consistent carbohydrates. 3. Activity: As tolerated. 4. Followup: Follow up with primary care physician in 1-2 weeks, with Dr. Campos on 06/25/2018 at 11:30, Dr. Elvia Seo in 1-[address] Ignacio was present for the discharge planning of this patient, took 35 minutes. [facility]
== END 2018-06-24 19:25 | disposition home or self-care (01) | DRG 638 ==
LOC: ERS 17:19 → OBSVTOIN 20:27 → 2SW 20:27 → T4-B 06-21 16:29
PROVIDERS: ADMIT Family Medicine; ATTEND Family Medicine
PROC: 02HV33Z Insertion of Infusion Device into Superior Vena Cava, Percutaneous Approach (ICD-10-PCS; principal; 2018-06-23)
PROC: B548ZZA Ultrasonography of Superior Vena Cava, Guidance (ICD-10-PCS; 2018-06-23)
DX: E11.621 Type 2 diabetes mellitus with foot ulcer (principal); I50.22 Chronic systolic (congestive) heart failure; M86.171 Other acute osteomyelitis, right ankle and foot; E11.69 Type 2 diabetes mellitus with other specified complication; E11.65 Type 2 diabetes mellitus with hyperglycemia; Z72.0 Tobacco use; Z95.810 Presence of automatic (implantable) cardiac defibrillator; E11.40 Type 2 diabetes mellitus with diabetic neuropathy, unspecified; Z79.899 Other long term (current) drug therapy; Z79.4 Long term (current) use of insulin; Z79.84 Long term (current) use of oral hypoglycemic drugs; Z79.2 Long term (current) use of antibiotics; R05 Cough; I73.9 Peripheral vascular disease, unspecified
CPT/HCPCS: 36415; 36416; 36569; 78315; 80053; 80061; 80202; 83036; 85025; 85652; 87070; 87205; 90471; 90715; 93306; 96361; 96374; A4216; A9503; J2405; J2543; J3370; J7050

== ENCOUNTER 2018-07-29 08:40 | Outpatient (CLI) | payer BC ==
[2018-07-29] MEDS ORDERED: Sodium Chloride 0.9% 15 ML NEB ONE (09:56)
--- NOTE | 2018-07-29 11:23 | HP ---
DATE OF SERVICE: 07/29/2018 HISTORY OF PRESENT ILLNESS: Mr. Aldo Fischer is a very pleasant 52-year-old gentleman who presents to the Wound Center for evaluation of an ulceration of the right lateral foot in the region of the fi fth metatarsophalangeal joint. The patient was discharged from [facility] on 06/24/2018. Bone scan obtained on 06/21/2018 revealed findings consistent with osteomyelitis of the fifth toe. The patient was seen in consultation by General Surgery; however, the patient opted for t reatment of osteomyelitis with a protracted course of IV antibiotics. After undergoing PICC line lin cement the patient was discharged to home on dressing changes of iodoform gauze for the ulceration of the right lateral foot. The patient states he was seen by Dr. Campos yesterday and at this time refe rred to the Wound Center for further evaluation and treatment. The patient's states that the ul ceration of the right lateral foot has improved in its appearance and the wound is associated with ma rkedly less erythema than at the time of the patient's admission to [facility] . PAST MEDICAL HISTORY: 1. Diabetes mellitus. 2. Heart failure with reduced ejection fraction, now improved. PAST SURGICAL HISTORY: Negative. MEDICATIONS: 1. Metformin. 2. Lantus. ALLERGIES: No known diagnosed allergies. SOCIAL HISTORY: The patient states he has used smokeless tobacco since age 8. The patient denies an y history of ETOH use. FAMILY HISTORY: Significant for diabetes mellitus and coronary artery disease. The patient states t hat his mother was diagnosed with both diabetes mellitus and coronary artery disease. PHYSICAL EXAMINATION: VITAL SIGNS: Temperature 97.7, pulse 94, respirations 18, blood pressure 122/75. Accu-Chek 228. GENERAL: A 52-year-old gentleman sitting on chair in examination room in no acute distress. HEENT: Normocephalic, atraumatic. NECK: No nuchal rigidity. CHEST: Clear to auscultation. CARDIAC: Regular rate and rhythm. ABDOMEN: Soft. EXTREMITIES: An ulceration of the right lateral foot in the region of the fifth metatarsophalangeal joint is present. The dimensions of the wound are approximately 0.7 x 0.7 cm. Granulation tissue wa s present within the wound margins. Necrotic and nonviable tissue present within the wound margins w as debrided with an excisional full-thickness debridement with the use of a curette. Undermining sonia cielo and desiccated tissue at the periphery of the wound were excised with the use of scissors. No pu rulent drainage is associated with the wound. Erythema of the skin surrounding the wound is present. No maceration of the skin of the periwound is noted. A dorsalis pedis pulse is easily palpable on the right. Edema of the right fifth toe is present on exam today. NEUROLOGIC: Grossly nonfocal. ASSESSMENT AND PLAN: 1. Ulceration of right lateral foot in the region of the fifth metatarsophalangeal joint. Dressing changes of Xeroform gauze, 4 x 4's, Kerlix, and Coban will be initiated today. These dressing change s are to be performed on a daily basis after cleansing and irrigation. As stated above, the patient is receiving IV antibiotics as per Infectious Diseases for osteomyelitis of the right fifth toe. I w ill see Mr. Fischer again in 2 weeks. The patient and his understand and are in agreement with th e preceding treatment plan. The importance of offloading in achieving the healing of the ulceration has been discussed with the patient and his . 2. Diabetes mellitus. The patient's Accu-Chek in clinic today is 228. The patient has been told th at for optimal wound healing, his blood glucoses should remain below 150. 3. Heart failure with reduced ejection fraction, now improved.
== END 2018-07-29 08:41 | disposition home or self-care (01) ==
LOC: WCC 08:40
PROVIDERS: ATTEND Family Medicine
DX: E11.621 Type 2 diabetes mellitus with foot ulcer (principal); L97.519 Non-pressure chronic ulcer of other part of right foot with unspecified severity; I50.9 Heart failure, unspecified
CPT/HCPCS: 11042; 36416; 99203; A4218; G0463

== ENCOUNTER 2018-08-04 12:20 | Outpatient (CLI) | payer BC ==
--- NOTE | 2018-08-04 13:50 | RAD ---
TWO VIEWS RIGHT FOOT: Date: 08-04-18 History: Post treatment for osteomyelitis. Comparison: 06-20-18 FINDINGS: There is slight irregularity involving the lateral aspect of the proximal interphalangeal joint right small toe. This does appear slightly more prominent than on the prior study. This may be attributabl e to degenerative changes, but osteomyelitis cannot be entirely excluded given abnormal uptake on lyn or bone scan. There does appear to be slightly greater irregularity in this region than on the prior exam. However, the dressing material overlying the lateral right foot is slightly more posteriorly lo cated than in this region. Subcutaneous soft tissue swelling is seen. There is also soft tissue swell ing seen dorsal to the region of the metacarpal phalangeal joints on the lateral view which was not p resent on the prior study. No fracture or dislocation is appreciated. Vascular calcifications are aga in noted. IMPRESSION: 1. Slight irregularity involving the lateral aspect of the proximal interphalangeal joint right small toe. This may be on the basis of degenerative type changes as this does not have the typical appeara nce for osseous destruction, but osteomyelitis in this region cannot be entirely excluded. No additio nal areas of osseous destruction are seen. 2. Slight mottled appearance of the osseous structures of the forefoot, probably attributable to oste openia. 3. Subcutaneous soft tissue swelling right small toe. POS: [facility]
== END 2018-08-04 12:21 | disposition home or self-care (01) ==
LOC: BICRAD 12:20
PROVIDERS: ATTEND Internal Medicine Infectious Disease
DX: M86.9 Osteomyelitis, unspecified (principal); M79.89 Other specified soft tissue disorders

== ENCOUNTER 2018-08-12 13:11 | Outpatient (CLI) | payer BC ==
--- NOTE | 2018-08-12 14:18 | PRG ---
DATE OF SERVICE: 08/12/2018 HISTORY: Mr. Anthony Fischer is a very pleasant 52-year-old gentleman who presents to the Wound Ce nt for evaluation of an ulceration of the right lateral foot in the region of the fifth metatarsoph alangeal joint. The patient was discharged from [facility] on 06/24/2018. Papito ne scan obtained on 06/21/2018 revealed findings consistent with osteomyelitis of the fifth toe. The patient was seen in consultation by General Surgery; however, the patient opted for treatment of ost eomyelitis with a protracted course of IV antibiotics. After undergoing PICC line placement the darleen ent was discharged to home on dressing changes of iodoform gauze for the ulceration of the right late ral foot. The patient was seen by Dr. Campos 1 day prior to his initial presentation to the [facility]ound [facility] and at this time referred to the Wound Center for further evaluation and treatment. Again, the p alvarado's states that the ulceration of the right lateral foot has improved in its appearance and that the wound is associated with less erythema than at the time of the patient's last visit to the Wound Center. The patient is now taking p.o. Keflex as per Dr. Campos which apparently is to be taken for a total of 30 days. PHYSICAL EXAMINATION: VITAL SIGNS: Temperature 97.5, pulse 91, respirations 18, blood pressure 140/88. Accu-Chek 175. EXTREMITIES: An ulceration of the right lateral foot in the region of the fifth metatarsophalangeal joint is still present. The dimensions of the wound are approximately 0.4 x 0.6 cm. Granulation tis douglas is present within the wound margins. Necrotic and nonviable tissue present within the wound pj ins was debrided with an excisional full-thickness debridement with the use of a curette and scissors . Undermining callus and desiccated tissue at the periphery of the wound were also eliminated with t he use of scissors. No purulent drainage is associated with the wound. Erythema of the skin surroun ding the wound is still present. No maceration of the skin of the periwound is noted. Edema of the right fifth toe is again present on exam today. ASSESSMENT AND PLAN: 1. Ulceration of right lateral foot in the region of the fifth metatarsophalangeal joint. Dressing changes of Xeroform gauze, 4 x 4's, Kerlix, and an Noel bandage or Coban will be continued on a daily basis after cleansing and irrigation. As stated above, the patient is now taking p.o. antibiotics as per Infectious Diseases for osteomyelitis of the right fifth toe. I will see Mr. Fischer again in 2 w eeks. The patient has a followup appointment with Dr. Campos in 4 weeks. 2. Diabetes mellitus. The patient's Accu-Chek in clinic today is 175. The patient has been reminde d that for optimal wound healing, his blood glucoses should remain below 150. 3. Heart failure with reduced ejection fraction, now improved.
[2018-08-12] MEDS ORDERED: Lidocaine 2% Jelly 5 ML TUBE ONE (18:00)
== END 2018-08-12 13:12 | disposition home or self-care (01) ==
LOC: WCC 13:11
PROVIDERS: ATTEND Family Medicine
DX: E11.621 Type 2 diabetes mellitus with foot ulcer (principal); L97.519 Non-pressure chronic ulcer of other part of right foot with unspecified severity; I50.9 Heart failure, unspecified
CPT/HCPCS: 11042; 36416

== ENCOUNTER 2018-08-27 14:12 | Outpatient (CLI) | payer BC ==
--- NOTE | 2018-08-27 17:33 | PRG ---
DATE OF SERVICE: 08/27/2018 HISTORY: Mr. Aldo Fischer is a very pleasant 52-year-old gentleman, who presents to the Wound Center for evaluation of an ulceration of the right lateral foot in the region of the fifth metatarsophalangeal joint. The patient was discharged from [facility] on 06/24/2018. Bone scan obtained on 06/21/2018 revealed findings consistent with osteomyelitis of the fifth toe. The patient was seen in consultation by General Surgery; however, the patient opted for treatment of osteomyelitis with a protracted course of IV antibiotics. After undergoing PICC line placement, the patient was discharged to home on dressing changes of iodoform guaze for the ulceration of the right lateral foot. The patient was seen by Dr. Campos one day prior to his initial presentation to the Wound Center and at this time was referred to the Wound Center for further evaluation and treatment. PHYSICAL EXAMINATION: VITAL SIGNS: Temperature 97.9, pulse 92, respirations 17, and blood pressure 130/81. Accu-Chek 135. EXTREMITIES: An ulceration of the right lateral foot in the region of the fifth metatarsophalangeal joint is still present. The dimensions of the wound are approximately 1.0 x 0.3 cm. Nonviable tissue associated with the wound was debrided with an excisional partial thickness debridement with the use of a curette and scissors. Callus and desiccated tissue associated with the wound were also eliminated with the use of scissors. No purulent drainage is associated with the wound. No erythema of the skin surrounding the wound is present. No maceration of the skin of the periwound is noted. ASSESSMENT AND PLAN: 1. Ulceration of right lateral foot in the region of the fifth metatarsophalangeal joint. Dressing changes of xeroform gauze, Kerlix, and Coban will be continued on daily basis after cleansing and irrigation. I will see Mr. Fischer again in 2 weeks. 2. Diabetes mellitus. The patient's Accu-Chek in clinic today is 135. The patient has been reminded that for optimal wound healing his blood glucoses should remain below 150. 3. Heart failure with reduced ejection fraction, now improved. Job ID: [id number]
[2018-08-27] MEDS ORDERED: Lidocaine 2% Jelly 30 GM TUBE ONE (18:00)
[2018-08-27] MEDS ORDERED: Sodium Chloride 0.9% 15 ML NEB ONE (18:00)
== END 2018-08-27 14:13 | disposition home or self-care (01) ==
LOC: WCC 14:12
PROVIDERS: ATTEND Family Medicine
DX: E11.621 Type 2 diabetes mellitus with foot ulcer (principal); L97.519 Non-pressure chronic ulcer of other part of right foot with unspecified severity; I50.9 Heart failure, unspecified
CPT/HCPCS: A4218

== ENCOUNTER 2018-10-28 11:39 | Outpatient (CLI) | payer BC ==
--- NOTE | 2018-10-28 13:19 | RAD ---
RIGHT FOOT 3 VIEWS: HISTORY: Foot swelling. Evaluation for osteomyelitis. COMPARISON: The 06/20/2018 examination. FINDINGS: The bones appear diffuse demineralized. There are vascular calcifications noted. There appears to b e some soft tissue swelling just along the lateral aspect of the 5th metatarsophalangeal joint. I do not see any definite osteomyelitis in this region; however, there is some increased sclerotic bony c hange seen on the AP projection along the lateral side of the more distal aspect of the proximal phal anx of the little toe. This is subtly different as compared to the prior examination. If the patien t has some type of wound in this area, this could indicate some indolent osteomyelitis. IMPRESSION: Subtle bony changes of the proximal phalanx of the little toe as discussed above. These changes appe ar largely chronic in nature, but the sclerotic bony change is slightly more prominent on the AP proj ection as compared to the previous study. If clinically indicated, further evaluation with MRI may b e helpful in assessment for osteomyelitis in this region. POS: [facility]
== END 2018-10-28 11:40 | disposition home or self-care (01) ==
LOC: BICRAD 11:39
PROVIDERS: ATTEND Internal Medicine Infectious Disease
DX: M86.271 Subacute osteomyelitis, right ankle and foot (principal)